=== PATIENT | female | born 2000 | race Caucasian/White ===

== ENCOUNTER 2020-11-14 16:20 | Emergency (ER) | payer OTHER ==
[~2020-11-14 16:20] MED LIST: MACROBID 100 M100 MG PO; PRILOSEC OTC20 MG PO; ZOFRAN4 MG PO
[2020-11-14] MEDS ORDERED: OMNICEF 300 MG300 MG PO (18:26)
[2020-11-17 20:08] LABS: CHLAMYDIA TRACHOMATIS, NAA Negative (Negative); NEISSERIA GONORRHOEAE, NAA Negative (Negative)
== END 2020-11-14 18:55 | disposition home or self-care (01) ==
LOC: ER1 16:20
PROVIDERS: Physician Assistant
DX: S30.814A Abrasion of vagina and vulva, initial encounter (principal); N39.0 Urinary tract infection, site not specified; Z90.49 Acquired absence of other specified parts of digestive tract; Z88.0 Allergy status to penicillin; Z88.5 Allergy status to narcotic agent; W22.8XXA Striking against or struck by other objects, initial encounter
CPT/HCPCS: 81001; 87086; 87210; 96372; 99283; J0696

== ENCOUNTER 2020-11-16 19:54 | Emergency (ER) | payer OTHER ==
[~2020-11-16 19:54] MED LIST changes: +OMNICEF 300 MG300 MG PO
[2020-11-16 21:26] LABS: HEMOGLOBIN 14.3 gm/dl (12.3-15.3); RED BLOOD COUNT 4.7 M/UL (4.00-5.10); WHITE BLOOD COUNT 7.4 K/UL (4.5-11.0)
[2020-11-16 21:45] LABS: BUN/CREATININE RATIO 12 (0-10)
[2020-11-16] MEDS ORDERED: BUTALB-ACETAMI1 EAC1 PO (23:37)
== END 2020-11-16 23:42 | disposition home or self-care (01) ==
LOC: ER1 19:54
PROVIDERS: Family Medicine
DX: R51.9 Headache, unspecified (principal)
CPT/HCPCS: 70496; 80053; 85025; 96374; 96375; 99284; J0780; J1200; J1885; Q9967

== ENCOUNTER 2021-02-05 16:34 | Emergency (ER) | payer OTHER ==
[~2021-02-05 16:34] MED LIST changes: +BUTALB-ACETAMI1 EAC1 PO
== END 2021-02-05 18:39 | disposition left against medical advice (07) ==
LOC: ER1 16:34
DX: Z53.21 Procedure and treatment not carried out due to patient leaving prior to being seen by health care provider (principal)